=== PATIENT | male | born 1960 | race Caucasian/White ===

== ENCOUNTER 2017-06-07 13:32 | Day surgery (SDC) | payer OTHER ==
[2017-06-07] MEDS ORDERED: LIDOCAINE 2% (SDV) 5 ML INJ (15:11)
[2017-06-07] MEDS ORDERED: PROPOFOL 60 ML (15:11)
== END 2017-06-07 18:03 | disposition home or self-care (01) ==
LOC: GIL 13:32
DX: K92.1 Melena (principal); I10 Essential (primary) hypertension; E11.9 Type 2 diabetes mellitus without complications; E03.9 Hypothyroidism, unspecified
CPT/HCPCS: 45378; 82962